=== PATIENT | male | born 1990 | race Caucasian/White ===

== ENCOUNTER 2018-06-12 15:39 | Emergency (ER) | payer OTHER ==
[~2018-06-12] VITALS: Ht 188 cm; Wt 90.7 kg
[~2018-06-12 15:39] MED LIST: ACTICIN 5% CREA60 G1 TOP; AFRIN15 ML NS; AUGMENTIN 875875 MG PO; BACTRIM DS TAB1 EACH PO; BACTROBAN CREAM30 G1 TOP; CEPHALEXIN 500500 M2 PO; CLEOCIN HCL300 MG PO; HYDROCODONE-AP1 EAC6 PO; IBUPROFEN 800800 M1 PO; MEDROL DOSPAK21 TA1 PO; NAPROSYN500 MG PO; NOHOMEMEDICATIONS; NORCO 5-325 TA1 EACH PO; OXYCODONE HCL 55 MG; PENICILLIN V P500 MG PO; PENICILLIN VK250 MG PO; PERCOCET 7.5-31 EACH PO; PHENERGAN 25 MG25 M1 PO; PREDNISONE 20 M20 M1 PO; PREDNISONE 20 M20 MG PO; SEPTRA 80-4001 EACH PO; ULTRAM 50MG TAB50 MG PO; ZOFRAN 4 MG ORAL4 M1 DIS; ZOFRAN ODT4 MG PO
[2018-06-12] MEDS ORDERED: PREDNISONE 20 M20 MG PO ×2 (15:51→15:52)
[2018-06-12] MEDS ORDERED: KEFLEX500 M1 PO (15:52)
== END 2018-06-12 16:06 | disposition home or self-care (01) ==
LOC: M.ERS 15:39
DX: S80.812A Abrasion, left lower leg, initial encounter (principal); S80.811A Abrasion, right lower leg, initial encounter; S60.512A Abrasion of left hand, initial encounter; S60.511A Abrasion of right hand, initial encounter; L08.9 Local infection of the skin and subcutaneous tissue, unspecified; F15.10 Other stimulant abuse, uncomplicated; F17.210 Nicotine dependence, cigarettes, uncomplicated; Z91.048 Other nonmedicinal substance allergy status; X58.XXXA Exposure to other specified factors, initial encounter; Y93.89 Activity, other specified; Y92.89 Other specified places as the place of occurrence of the external cause; Y99.8 Other external cause status

== ENCOUNTER 2019-03-10 19:57 | Emergency (ER) | payer OTHER ==
[~2019-03-10] VITALS: Ht 188 cm; Wt 81.7 kg
[~2019-03-10 19:57] MED LIST changes: +KEFLEX500 M1 PO
[2019-03-10] MEDS ORDERED: IBUPROFEN 800800 M1 PO (21:48)
[2019-03-10] MEDS ORDERED: AUGMENTIN 875-1 EACH PO (21:48)
[2019-03-10] MEDS ORDERED: ACETAMINOPHEN-1 EAC1 PO (21:48)
[2019-03-10 22:01] VITALS: BP 142/96
== END 2019-03-10 22:03 | disposition home or self-care (01) ==
LOC: M.ERS 19:57
DX: S01.512A Laceration without foreign body of oral cavity, initial encounter (principal); J32.9 Chronic sinusitis, unspecified; F17.210 Nicotine dependence, cigarettes, uncomplicated; Z91.09 Other allergy status, other than to drugs and biological substances; W26.8XXA Contact with other sharp object(s), not elsewhere classified, initial encounter; Y93.89 Activity, other specified; Y92.89 Other specified places as the place of occurrence of the external cause; Y99.8 Other external cause status

== ENCOUNTER 2020-05-18 23:47 | Emergency (ER) | payer OTHER ==
[~2020-05-18] VITALS: Ht 190.5 cm; Wt 86.2 kg
[~2020-05-18 23:47] MED LIST changes: +ACETAMINOPHEN-1 EAC1 PO; +AUGMENTIN 875-1 EACH PO
[2020-05-19] MEDS ORDERED: KEFLEX500 M2 PO (00:14)
[2020-05-19] MEDS ORDERED: PREDNISONE 10 M10 M1 PO (00:14)
[2020-05-19 00:29] VITALS: BP 132/99
== END 2020-05-19 00:29 | disposition home or self-care (01) ==
LOC: M.ERS 23:47
DX: L23.7 Allergic contact dermatitis due to plants, except food (principal); F17.210 Nicotine dependence, cigarettes, uncomplicated

== ENCOUNTER 2020-05-24 12:52 | Emergency (ER) | payer OTHER ==
[~2020-05-24] VITALS: Ht 188 cm; Wt 83.9 kg
[~2020-05-24 12:52] MED LIST changes: +KEFLEX500 M2 PO; +PREDNISONE 10 M10 M1 PO
[2020-05-24] MEDS ORDERED: BACTRIM DS TAB1 EACH PO (13:56)
[2020-05-24] MEDS ORDERED: ACYCLOVIR 800800 MG PO (13:56)
[2020-05-24 14:11] VITALS: BP 132/61
== END 2020-05-24 14:12 | disposition home or self-care (01) ==
LOC: M.ERS 12:52
DX: B00.1 Herpesviral vesicular dermatitis (principal); L08.9 Local infection of the skin and subcutaneous tissue, unspecified; F17.210 Nicotine dependence, cigarettes, uncomplicated; Z91.048 Other nonmedicinal substance allergy status